=== PATIENT | male | born 1955 ===

== ENCOUNTER 2024-07-26 06:14 | Observation (INO) ==
[2024-07-24 16:25] LABS: Basophils # (Auto) 0.02 K/mcL (0.00-0.30); Basophils % (Auto) 0.2 % (0.0-2.0); Eosinophils # (Auto) 0.21 K/mcL (0.00-0.70); Eosinophils % (Auto) 1.7 % (0.0-7.0); Hematocrit 46.9 % (40.1-51.0); Hemoglobin 15.8 g/dL (13.7-17.5); Lymphocytes # (Auto) 2.35 K/mcL (1.50-4.80); Lymphocytes % (Auto) 18.5 % (15.5-49.0); Mean Cell Volume 92.9 fL (80.0-100.0); Mean Corpuscular HGB Conc 33.7 g/dL (31.0-36.0); Mean Platelet Volume 10.3 fL (8.8-12.5); Monocytes # (Auto) 1.19 K/mcL (0.10-0.90); Monocytes % (Auto) 9.4 % (1.0-12.0); Platelet Count 224 K/mcL (140-440); RBC 5.05 M/mcL (4.63-6.08); Red Cell Distribution Width 12.5 % (11.5-14.5); WBC 12.7 K/mcL (4.5-11.0)
[2024-07-24 16:38] LABS: Blood Urea Nitrogen 21 mg/dL (8-23); Calcium 9.3 mg/dL (8.6-10.4); Carbon Dioxide 23 mmol/L (22-30); Chloride 100 mmol/L (96-108); Glomerular Filtration Rate 87; Glucose 106 mg/dL (70-105); Potassium 4.4 mmol/L (3.3-5.1); Sodium 136 mmol/L (133-145)
[2024-07-24 17:08] LABS: INR 1.1 (0.9-1.1); Prothrombin Time 14.3 sec (11.9-14.5)
[2024-07-26] MEDS ORDERED: KETAMINE 50 MG/ML Syringe IV ONE ×2 (07:03→11:58)
[2024-07-26] MEDS ORDERED: DEXAMETHASONE 10 MG/ML VIAL ONE (07:04)
[2024-07-26] MEDS ORDERED: SUCCINYLCHOLINE 200 MG/10 ML VIAL IV ONE (07:04)
[2024-07-26] MEDS ORDERED: PROPOFOL 200 MG/20 ML VIAL IV ONE (07:04)
[2024-07-26] MEDS ORDERED: GLYCOPYRROLATE 0.2 MG/ML VIAL IV ONE (07:04)
[2024-07-26] MEDS ORDERED: METOCLOPRAMIDE 10 MG/2 ML VIAL ONE (07:04)
[2024-07-26] MEDS ORDERED: PHENYLephrine 1 MG/10 ML SYRINGE (ANEST) ONE (07:04)
[2024-07-26] MEDS ORDERED: LIDOCAINE 2% PF 5 ML VIAL ONE (07:04)
[2024-07-26] MEDS ORDERED: ONDANSETRON 4 MG/2 ML VIAL ONE (07:04)
[2024-07-26] MEDS ORDERED: ePHEDrine 50 MG/5 ML SYRINGE (ANEST) IV ONE (07:04)
[2024-07-26] MEDS ORDERED: MIDAZOLAM 2 MG/2 ML VIAL ONE (07:04)
[2024-07-26] MEDS ORDERED: ROCURONIUM 10 MG/ML ML IV ONE ×2 (07:07→08:55)
[2024-07-26] MEDS ORDERED: fentaNYL 100 MCG/2 ML VIAL ONE (07:08)
[2024-07-26] MEDS ORDERED: ACETAMINOPHEN 325 MG TABLET PO PRN (07:18)
[2024-07-26] MEDS ORDERED: morphine 4 MG/ML VIAL IV PRN (07:18)
[2024-07-26] MEDS ORDERED: KETOROLAC 15 MG/ML VIAL IV PRN (07:18)
[2024-07-26] MEDS ORDERED: ONDANSETRON 4 MG/2 ML VIAL IV PRN ×2 (07:18→12:05)
[2024-07-26] MEDS: ceFAZolin 3 GM in DEXTROSE 5% IN WATER 50 ML IV SCH (07:23)
[2024-07-26] MEDS ORDERED: METOPROLOL TARTRATE 5 MG/5 ML VIAL IV ONE (07:30)
[2024-07-26] MEDS: VANCOMYCIN 2,000 MG in DEXTROSE 5% IN WATER 500 ML IV SCH (07:55)
[2024-07-26] MEDS: BUPIVACAINE 0.25% 50 ML VIAL IJ ONE (07:59)
[2024-07-26] MEDS ORDERED: FAMOTIDINE/PF 20 MG/2 ML VIAL IV ONE (08:54)
[2024-07-26] MEDS ORDERED: HYDROmorphone 0.5 MG/0.5 ML SYRINGE ONE ×2 (08:57→10:01)
[2024-07-26] MEDS ORDERED: DEXMEDETOMIDINE HCL 200 MCG/2 ML VIAL ONE (08:58)
[2024-07-26] MEDS ORDERED: 0.9 % SODIUM CHLORIDE 100 ML IV ONE (08:59)
[2024-07-26] MEDS ORDERED: SUGAMMADEX SODIUM 200 MG/2 ML VIAL IV ONE (11:43)
[2024-07-26] MEDS ORDERED: NALOXONE HCL 0.4 MG/ML VIAL IV PRN (12:05)
[2024-07-26] MEDS ORDERED: HYDROmorphone 0.5 MG/0.5 ML SYRINGE IV PRN (12:05)
[2024-07-26] MEDS ORDERED: KETOROLAC 30 MG/ML VIAL ONE (12:05)
[2024-07-26] MEDS ORDERED: IPRATROPIUM/ALBUTEROL 3 ML AMPUL.NEB NEB PRN (12:05)
[2024-07-26] MEDS ORDERED: fentaNYL 100 MCG/2 ML VIAL IV PRN (12:05)
[2024-07-26] MEDS: DEXTROSE 5%-NS 1,000 ML IV SCH (13:20)
[2024-07-26 13:32] LABS: Hematocrit 44.3 % (40.1-51.0); Hemoglobin 14.8 g/dL (13.7-17.5); Mean Cell Volume 94.1 fL (80.0-100.0); Mean Corpuscular HGB Conc 33.4 g/dL (31.0-36.0); Mean Platelet Volume 10.2 fL (8.8-12.5); Platelet Count 246 K/mcL (140-440); RBC 4.71 M/mcL (4.63-6.08); Red Cell Distribution Width 12.5 % (11.5-14.5); WBC 20.1 K/mcL (4.5-11.0)
[2024-07-26] MEDS: LACTATED RINGERS 1,000 ML IV SCH (13:43)
[2024-07-26] MEDS: 0.9 % SODIUM CHLORIDE 10 ML SYRINGE IV SCH (13:44)
[2024-07-26 13:58] LABS: Blood Urea Nitrogen 26 mg/dL (8-23); Calcium 8.9 mg/dL (8.6-10.4); Carbon Dioxide 21 mmol/L (22-30); Chloride 97 mmol/L (96-108); Glomerular Filtration Rate 51; Glucose 189 mg/dL (70-105); Potassium 4.6 mmol/L (3.3-5.1); Sodium 133 mmol/L (133-145)
[2024-07-26] MEDS: 0.9 % SODIUM CHLORIDE 250 ML IV SCH (14:50)
[2024-07-26] MEDS: HYDROcodone/APAP 5/325MG TABLET PO PRN (20:43)
[2024-07-26] MEDS: DILTIAZEM 180 MG CAP.XL.24H PO SCH (20:43)
[2024-07-26] MEDS: LIDOCAINE 4% TOP PATCH TOPICAL SCH (20:45)
[2024-07-26] MEDS: DOCUSATE SODIUM 100 MG CAPSULE PO SCH (20:45)
[2024-07-26] MEDS: ATORVASTATIN 20 MG TABLET PO SCH (20:46)
[2024-07-26] MEDS: LOSARTAN 50 MG TABLET PO SCH (20:58)
[2024-07-27 06:17] LABS: Hemoglobin 15.3 g/dL (13.7-17.5); Mean Cell Volume 93.7 fL (80.0-100.0); Mean Corpuscular HGB Conc 33.3 g/dL (31.0-36.0); Mean Platelet Volume 10.3 fL (8.8-12.5); Platelet Count 241 K/mcL (140-440); RBC 4.91 M/mcL (4.63-6.08); Red Cell Distribution Width 12.7 % (11.5-14.5); WBC 28.9 K/mcL (4.5-11.0)
[2024-07-27 06:48] LABS: Blood Urea Nitrogen 31 mg/dL (8-23); Calcium 9.3 mg/dL (8.6-10.4); Carbon Dioxide 23 mmol/L (22-30); Chloride 97 mmol/L (96-108); Glomerular Filtration Rate 56; Glucose 154 mg/dL (70-105); Potassium 4.6 mmol/L (3.3-5.1); Sodium 135 mmol/L (133-145)
[2024-07-27] MEDS: INDAPAMIDE 2.5 MG TABLET PO SCH (07:56)
[2024-07-27] MEDS ORDERED: LEVOFLOXACIN 750 MG/150 ML BAG IV SCH (08:00)
[2024-07-27] MEDS: metroNIDAZOLE 500 MG/100 ML BAG IV SCH (08:27)
[2024-07-27] MEDS: LEVOFLOXACIN 500 MG/100 ML BAG IV SCH (09:37)
[2024-07-27 13:08] LABS: Hematocrit 44.6 % (40.1-51.0); Hemoglobin 14.8 g/dL (13.7-17.5); Mean Cell Volume 95.7 fL (80.0-100.0); Mean Corpuscular HGB Conc 33.2 g/dL (31.0-36.0); Mean Platelet Volume 10.4 fL (8.8-12.5); Platelet Count 239 K/mcL (140-440); RBC 4.66 M/mcL (4.63-6.08); Red Cell Distribution Width 12.8 % (11.5-14.5); WBC 28.9 K/mcL (4.5-11.0)
[2024-07-27] MEDS: SENNOSIDES 1 TABLET PO SCH (22:29)
[2024-07-28 06:48] LABS: Blood Urea Nitrogen 31 mg/dL (8-23); Carbon Dioxide 25 mmol/L (22-30); Chloride 101 mmol/L (96-108); Glomerular Filtration Rate 76; Glucose 115 mg/dL (70-105); Sodium 138 mmol/L (133-145)
[2024-07-28 06:51] LABS: Hematocrit 42.1 % (40.1-51.0); Hemoglobin 14.1 g/dL (13.7-17.5); Mean Cell Volume 94.8 fL (80.0-100.0); Mean Corpuscular HGB Conc 33.5 g/dL (31.0-36.0); Mean Platelet Volume 10.8 fL (8.8-12.5); Platelet Count 206 K/mcL (140-440); RBC 4.44 M/mcL (4.63-6.08); Red Cell Distribution Width 12.9 % (11.5-14.5); WBC 20.8 K/mcL (4.5-11.0)
[2024-07-28] MEDS: ASPIRIN 81 MG TAB.CHEW CHEWED SCH (08:49)
[2024-07-28] MEDS ORDERED: metroNIDAZOLE 500 MG/100 ML BAG IV SCH (14:00)
== END 2024-07-28 13:03 | disposition home or self-care (01) ==
LOC: MEDSUR 06:14 → SUR 06:14 → MEDSUR 13:07
PROVIDERS: ADMIT Urology; ATTEND Urology